=== PATIENT | female | born 1995 | race Asian ===

== ENCOUNTER 2018-05-30 16:28 | Inpatient (IN) | payer OTHER ==
[~2018-05-30] VITALS: Ht 167.6 cm; Wt 91.0 kg
[2018-05-30 17:42] LABS: BASOPHIL % 0.4 % (0-2); PLATELET COUNT 166 x10^3mcL (130-400); RED CELL DISTRIBUTION WIDTH 14.5 % (11.5-14.5)
[2018-05-30 17:51] LABS: AMPHETAMINE QUAL UR NONE DETECTED (See below)
[2018-05-30 17:52] LABS: CALCIUM 9.4 mg/dL (8.5-10.1); CARBON DIOXIDE 25.4 mmol/L (21-32); CHLORIDE SERUM 105 mmol/L (98-107); CREATININE SERUM 0.9 mg/dL (0.6-1.0); GFR1 > 60 mL/min; GLUCOSE SERUM 92 mg/dL (74-106); POTASSIUM SERUM 3.9 mmol/L (3.5-5.1); SODIUM SERUM 140 mmol/L (136-145)
[2018-05-30 17:57] LABS: ALBUMIN 3.8 g/dL (3.4-5.0); ALKALINE PHOSPHATASE 127 U/L (46-116); ALT/SGPT 773 U/L (14-59); AST/SGOT 436 U/L (15-37); BILIRUBIN TOTAL 2.22 mg/dL (0.20-1.00)
[2018-05-30 17:59] LABS: TOTAL PROTEIN, SERUM 8.7 g/dL (6.4-8.2)
[2018-05-31 00:23] LABS: UA SPECIFIC GRAVITY 1.025 (1.005-1.035); microscopic required? YES; urine erythrocyte NEGATIVE (NEGATIVE)
[2018-05-31] MEDS ORDERED: FLUOXETINE20 M3 PO (00:45)
[2018-05-31] MEDS ORDERED: BACLOFEN10 MG PO (00:48)
[2018-05-31 02:45] VITALS: BP 111/79
[2018-05-31 04:10] LABS: PHOSPHOROUS 3.3 mg/dL (2.5-4.9); T3 TOTAL 1.62 ng/mL
[2018-05-31 04:17] LABS: FREE T4 1.32 ng/dL (0.76-1.46)
[2018-05-31 04:19] LABS: CHOLESTEROL/HDL RATIO 2.7; FREE THYROXINE INDEX 3.5 ug/dL (1.4-4.5); T4(THYROXINE) 13.9 ug/dL (4.7-13.3)
[2018-05-31 05:33] VITALS: BP 130/91
[2018-05-31 09:02] VITALS: BP 145/91
[2018-05-31 12:21] LABS: BASOPHIL % 0.6 % (0-2); PLATELET COUNT 115 x10^3mcL (130-400); RED CELL DISTRIBUTION WIDTH 14.1 % (11.5-14.5)
[2018-05-31 12:36] LABS: CALCIUM 8.8 mg/dL (8.5-10.1); CARBON DIOXIDE 26.2 mmol/L (21-32); CHLORIDE SERUM 105 mmol/L (98-107); CREATININE SERUM 0.8 mg/dL (0.6-1.0); GFR1 > 60 mL/min; GLUCOSE SERUM 84 mg/dL (74-106); SODIUM SERUM 140 mmol/L (136-145)
[2018-05-31 13:51] VITALS: BP 140/83
[2018-05-31 16:48] VITALS: BP 123/84
[2018-05-31 21:35] VITALS: BP 102/48
[2018-06-01 05:36] VITALS: BP 112/67
[2018-06-01 06:44] LABS: BILIRUBIN DIRECT 0.6 mg/dL (0.0-0.2); BILIRUBIN TOTAL 1.2 mg/dL (0.20-1.00)
[2018-06-01 06:46] LABS: ALBUMIN 2.7 g/dL (3.4-5.0); TOTAL PROTEIN, SERUM 5.9 g/dL (6.4-8.2)
[2018-06-01 07:00] LABS: BASOPHIL % 0.5 % (0-2)
[2018-06-01 07:03] LABS: CALCIUM 7.8 mg/dL (8.5-10.1); CARBON DIOXIDE 23.1 mmol/L (21-32); CHLORIDE SERUM 108 mmol/L (98-107); CREATININE SERUM 0.7 mg/dL (0.6-1.0); GFR1 > 60 mL/min; GLUCOSE SERUM 95 mg/dL (74-106); MAGNESIUM 2.2 mg/dL (1.8-2.4); PHOSPHOROUS 3.7 mg/dL (2.5-4.9); POTASSIUM SERUM 4.1 mmol/L (3.5-5.1); SODIUM SERUM 137 mmol/L (136-145)
[2018-06-01 07:39] LABS: PLATELET COUNT 120 x10^3mcL (130-400); RED CELL DISTRIBUTION WIDTH 14.7 % (11.5-14.5)
[2018-06-01 13:36] VITALS: BP 107/72
[2018-06-01 17:49] VITALS: BP 96/45
[2018-06-01 22:49] VITALS: BP 98/55
[2018-06-02 05:25] VITALS: BP 105/52
[2018-06-02 07:23] VITALS: BP 132/78
[2018-06-02 13:47] LABS: CALCIUM 8.9 mg/dL (8.5-10.1); CARBON DIOXIDE 23.1 mmol/L (21-32); CHLORIDE SERUM 104 mmol/L (98-107); CREATININE SERUM 0.8 mg/dL (0.6-1.0); GFR1 > 60 mL/min; GLUCOSE SERUM 110 mg/dL (74-106); POTASSIUM SERUM 4.4 mmol/L (3.5-5.1); SODIUM SERUM 135 mmol/L (136-145)
[2018-06-02 14:24] LABS: BASOPHIL % 0.8 % (0-2); RED CELL DISTRIBUTION WIDTH 14.5 % (11.5-14.5)
[2018-06-02 14:30] LABS: PLATELET COUNT 91 x10^3mcL (130-400)
[2018-06-02 16:56] VITALS: BP 110/62
[2018-06-02 21:35] VITALS: BP 115/76
[2018-06-02 21:53] VITALS: Ht 167.6 cm; Wt 91.0 kg
[2018-06-03 08:40] VITALS: BP 134/82
[2018-06-03] MEDS ORDERED: LAC PO (10:18)
[2018-06-03] MEDS ORDERED: LEVOTHYROXIN0.025 M2 PO (10:19)
[2018-06-03] MEDS ORDERED: DEPLUD PO (10:20)
[2018-06-03] MEDS ORDERED: SEROQUEL25 MG PO (10:20)
[2018-06-03] MEDS ORDERED: WELLBUTRIN XL150 M1 PO (10:21)
[2018-06-03 10:25] VITALS: BP 134/82
[2018-06-07] MEDS ORDERED: APAP/HYDROCODON1 T13 PO (15:19)
[2018-06-07] MEDS ORDERED: MOR4I IV (15:20)
[2018-06-07] MEDS ORDERED: TYL325 PO (15:21)
[2018-06-07] MEDS ORDERED: QUETIAPINE FUMA25 M1 PO (15:22)
[2018-06-07] MEDS ORDERED: SERO100 PO (15:23)
[2018-06-07] MEDS ORDERED: GEODON20 M1 IM (15:24)
[2018-06-07] MEDS ORDERED: ZOFI IV (15:25)
[2018-06-07] MEDS ORDERED: HAL5I IV (15:35)
[2018-06-07] MEDS ORDERED: HALOPERIDOL5 MG PO (16:49)
== END 2018-06-03 12:18 | disposition home or self-care (01) | DRG 432 ==
LOC: ED 16:28 → DU 05-31 01:44 → MU 06-02 10:27
PROVIDERS: Emergency Medicine; Family Medicine; Internal Medicine Gastroenterology
DX: K70.30 Alcoholic cirrhosis of liver without ascites (principal); G93.40 Encephalopathy, unspecified; N39.0 Urinary tract infection, site not specified; R45.851 Suicidal ideations; F31.60 Bipolar disorder, current episode mixed, unspecified; B17.9 Acute viral hepatitis, unspecified; F07.81 Postconcussional syndrome; I16.0 Hypertensive urgency; G47.00 Insomnia, unspecified; F12.10 Cannabis abuse, uncomplicated; D72.829 Elevated white blood cell count, unspecified; F43.10 Post-traumatic stress disorder, unspecified; F41.9 Anxiety disorder, unspecified; F41.0 Panic disorder [episodic paroxysmal anxiety]; E03.9 Hypothyroidism, unspecified; K80.50 Calculus of bile duct without cholangitis or cholecystitis without obstruction; Z68.30 Body mass index [BMI] 30.0-30.9, adult
CPT/HCPCS: 83880; 84439; G0480; J0696; J1630; J2060; J2405; J3480; J3490; J7030; Q0092

== ENCOUNTER 2018-06-17 13:52 | Emergency (ER) | payer OTHER ==
[~2018-06-17] VITALS: Ht 167.6 cm; Wt 88.5 kg
[~2018-06-17 13:52] MED LIST: APAP/HYDROCODON1 T13 PO; BACLOFEN10 MG PO; DEPLUD PO; FLUOXETINE20 M3 PO; GEODON20 M1 IM; HAL5I IV; HALOPERIDOL5 MG PO; LAC PO; LEVOTHYROXIN0.025 M2 PO; MOR4I IV; QUETIAPINE FUMA25 M1 PO; SERO100 PO; SEROQUEL25 MG PO; TYL325 PO; WELLBUTRIN XL150 M1 PO; ZOFI IV
[2018-06-17 14:16] VITALS: Ht 167.6 cm; Wt 88.5 kg
[2018-06-17 14:52] LABS: BASOPHIL % 0.3 % (0-2)
[2018-06-17 14:55] LABS: PLATELET COUNT 103 x10^3mcL (130-400); RED CELL DISTRIBUTION WIDTH 14.6 % (11.5-14.5)
[2018-06-17 15:01] LABS: CARBON DIOXIDE 25.7 mmol/L (21-32); CHLORIDE SERUM 108 mmol/L (98-107); CREATININE SERUM 0.7 mg/dL (0.6-1.0); GFR1 > 60 mL/min; GLUCOSE SERUM 87 mg/dL (74-106); POTASSIUM SERUM 3.9 mmol/L (3.5-5.1); SODIUM SERUM 139 mmol/L (136-145)
[2018-06-17 15:06] LABS: ALBUMIN 2.9 g/dL (3.4-5.0); ALKALINE PHOSPHATASE 141 U/L (46-116); ALT/SGPT 703 U/L (14-59); AST/SGOT 423 U/L (15-37); BILIRUBIN TOTAL 2.1 mg/dL (0.20-1.00); TOTAL PROTEIN, SERUM 6.8 g/dL (6.4-8.2)
[2018-06-17 15:19] LABS: UA SPECIFIC GRAVITY <=1.005 (1.005-1.035); microscopic required? YES; urine erythrocyte NEGATIVE (NEGATIVE)
[2018-06-17 17:46] LABS: AMPHETAMINE QUAL UR NONE DETECTED (See below)
[2018-06-17 22:05] VITALS: BP 136/73
== END 2018-06-17 22:18 ==
LOC: ED 13:52
PROVIDERS: Emergency Medicine
DX: S00.83XA Contusion of other part of head, initial encounter (principal); F31.9 Bipolar disorder, unspecified; F43.10 Post-traumatic stress disorder, unspecified; E03.9 Hypothyroidism, unspecified; Y04.8XXA Assault by other bodily force, initial encounter; Y93.89 Activity, other specified; Y92.89 Other specified places as the place of occurrence of the external cause; Y99.8 Other external cause status
CPT/HCPCS: 36415; 87491; 87591; G0480; J1885